=== PATIENT | female | born 2000 | race Caucasian/White ===

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

== ENCOUNTER 2018-02-14 13:21 | Emergency (ER) | payer MEDICAID ==
[~2018-02-14] VITALS: Ht 154.9 cm; Wt 47.7 kg
[2018-02-14 13:30] VITALS: TEMP 97.9
[2018-02-14 13:55] LABS: COLLECTION METHOD CLEAN CATCH
[2018-02-14 14:01] LABS: MUCOUS Present /lpf; PH 5 (5-8); URINE APPEARANCE Cloudy; URINE BACTERIA None Seen /hpf; URINE BILIRUBIN Negative (NEGATIVE); URINE BLOOD Negative (NEGATIVE); URINE COLOR Yellow; URINE GLUCOSE Negative (NEGATIVE); URINE KETONE Negative (NEGATIVE); URINE LEUKOCYTE ESTERASE 2+ (NEGATIVE); URINE NITRATE Negative (NEGATIVE); URINE PROTEIN(semi-quant) Negative (NEGATIVE); URINE RBC 0-2 /hpf; URINE UROBILINOGEN Negative (NEGATIVE)
[2018-02-14] MEDS ORDERED: CEPHALEXIN500 M1 PO (15:55)
[2018-02-14] MEDS ORDERED: FLAGYL500 MG PO (17:17)
[2018-02-14] MEDS ORDERED: DOXYCYCLINE 10100 MG PO (17:17)
[2018-02-14 18:02] VITALS: BP 115/76; PULSE 70
== END 2018-02-14 18:00 | disposition home or self-care (01) ==
LOC: COL.ER 13:21
PROVIDERS: Emergency Medicine
DX: N39.0 Urinary tract infection, site not specified (principal); N76.0 Acute vaginitis; N73.9 Female pelvic inflammatory disease, unspecified; F17.210 Nicotine dependence, cigarettes, uncomplicated; Z86.19 Personal history of other infectious and parasitic diseases
CPT/HCPCS: J0696

== ENCOUNTER 2018-02-17 20:11 | Emergency (ER) | payer SELFPAY ==
[~2018-02-17] VITALS: Ht 154.9 cm; Wt 50.0 kg
[~2018-02-17 20:11] MED LIST changes: +CEPHALEXIN500 M1 PO; +DOXYCYCLINE 10100 MG PO; +FLAGYL500 MG PO
[2018-02-17 20:14] VITALS: BP 107/57; TEMP 98.5
[2018-02-17] MEDS ORDERED: PEPCID 20MG TAB20 MG PO (22:15)
[2018-02-17] MEDS ORDERED: ZOFRAN ODT4 MG PO (22:15)
[2018-02-17 22:20] VITALS: PULSE 83
== END 2018-02-17 22:20 | disposition home or self-care (01) ==
LOC: COL.ER 20:11
DX: K29.70 Gastritis, unspecified, without bleeding (principal); F17.210 Nicotine dependence, cigarettes, uncomplicated

== ENCOUNTER 2018-02-25 11:43 | Emergency (ER) | payer SELFPAY ==
[~2018-02-25] VITALS: Ht 154.9 cm; Wt 50.0 kg
[~2018-02-25 11:43] MED LIST changes: +PEPCID 20MG TAB20 MG PO
[2018-02-25 11:54] VITALS: BP 101/60; PULSE 88; TEMP 98.9
== END 2018-02-25 15:54 | disposition left against medical advice (07) ==
LOC: COL.ER 11:43
DX: R10.2 Pelvic and perineal pain (principal)

== ENCOUNTER 2018-02-27 09:59 | Emergency (ER) | payer SELFPAY ==
[~2018-02-27] VITALS: Ht 154.9 cm; Wt 50.0 kg
[2018-02-27 10:03] VITALS: TEMP 98.9
[2018-02-27 10:39] LABS: COLLECTION METHOD CLEAN CATCH
[2018-02-27 10:49] LABS: HEMOGLOBIN 14.8 g/dl (12.0-15.0); MEAN CELL VOLUME 84 fl (80.0-95.0); MEAN CORPUSCULAR HEMOGLOBIN 29 pg (26.0-32.0); MEAN CORPUSCULAR HGB CONC 34 g/dl (33.0-37.0); MEAN PLATELET VOLUME 9.2 fl (7.4-10.4); PLATELET COUNT 211 K/mm3 (130-400); RED BLOOD COUNT 5.11 M/mm3 (4.10-5.30); REDCELL DISTRIBUTION WIDTH-CV 11.7 % (11.5-14.5)
[2018-02-27 10:53] LABS: MUCOUS Present /lpf; PH 5 (5-8); URINE APPEARANCE Hazy; URINE BACTERIA Rare /hpf; URINE BILIRUBIN Negative (NEGATIVE); URINE BLOOD Negative (NEGATIVE); URINE COLOR Yellow; URINE GLUCOSE Negative (NEGATIVE); URINE KETONE 2+ (NEGATIVE); URINE LEUKOCYTE ESTERASE 1+ (NEGATIVE); URINE NITRATE Negative (NEGATIVE); URINE PROTEIN(semi-quant) 1+ (NEGATIVE); URINE RBC 0-2 /hpf; URINE UROBILINOGEN Negative (NEGATIVE)
[2018-02-27 11:03] LABS: ALANINE AMINOTRANSFERASE 32 U/L (9-52); ALBUMIN 4.4 gm/dL (3.5-5.0); ALKALINE PHOSPHATASE 93 U/L (50-136); ANION GAP 8 mmol/L (7-16); AST,SGOT 34 U/L (15-37); BILIRUBIN,TOTAL 1.2 mg/dL (0.0-1.0); BLOOD UREA NITROGEN 18 mg/dL (7-17); CALCIUM 9.3 mg/dL (8.4-10.2); CARBON DIOXIDE 23 mmol/L (22-30); CHLORIDE 106 mmol/L (98-107); CREATININE, serum 0.63 mg/dL (0.52-1.25); GLUCOSE 104 mg/dL (74-106); POTASSIUM 4.1 mmol/L (3.4-5.0); SODIUM 137 mmol/L (137-145); TOTAL PROTEIN 7.9 gm/dL (6.4-8.2)
[2018-02-27 11:09] LABS: C-REACTIVE PROTEIN < 0.5 mg/dL (0.0-0.9)
[2018-02-27 11:10] LABS: BAND 1 % (0-10); LYMPHOCYTE 9 % (20.0-51.0); NEUTROPHILS 86 % (42.0-75.2)
[2018-02-27 11:11] LABS: PLATELET ESTIMATE NORMAL (NORMAL)
[2018-02-27 12:21] VITALS: BP 102/54; PULSE 95
== END 2018-02-27 12:23 | disposition other institution (70) ==
LOC: COL.ER 09:59
PROVIDERS: Physician Assistant
DX: O21.9 Vomiting of pregnancy, unspecified (principal); O26.899 Other specified pregnancy related conditions, unspecified trimester; R19.7 Diarrhea, unspecified; Z3A.00 Weeks of gestation of pregnancy not specified
CPT/HCPCS: J2405; J7030

== ENCOUNTER 2018-03-31 18:46 | Emergency (ER) | payer MEDICAID ==
[~2018-03-31] VITALS: Ht 160 cm; Wt 45.2 kg
[2018-03-31 18:57] VITALS: TEMP 98.4
[2018-03-31 19:32] LABS: COLLECTION METHOD CLEAN CATCH
[2018-03-31 19:54] LABS: MUCOUS Present /lpf; PH 6 (5-8); URINE APPEARANCE Cloudy; URINE BACTERIA None Seen /hpf; URINE BILIRUBIN Negative (NEGATIVE); URINE BLOOD Negative (NEGATIVE); URINE COLOR Yellow; URINE GLUCOSE Negative (NEGATIVE); URINE KETONE Negative (NEGATIVE); URINE LEUKOCYTE ESTERASE 3+ (NEGATIVE); URINE NITRATE Negative (NEGATIVE); URINE PROTEIN(semi-quant) Negative (NEGATIVE); URINE RBC 0-2 /hpf; URINE UROBILINOGEN >=4.0 mg/dL (NEGATIVE)
[2018-03-31] MEDS ORDERED: FLAGYL500 MG PO (20:30)
[2018-03-31] MEDS ORDERED: MACROBID 1100 MG/CAP PO (20:30)
[2018-03-31 20:34] VITALS: BP 104/42; PULSE 77
== END 2018-03-31 20:36 | disposition home or self-care (01) ==
LOC: COL.ER 18:46
PROVIDERS: Emergency Medicine
DX: O23.41 Unspecified infection of urinary tract in pregnancy, first trimester (principal); O23.591 Infection of other part of genital tract in pregnancy, first trimester; B96.89 Other specified bacterial agents as the cause of diseases classified elsewhere; O99.331 Smoking (tobacco) complicating pregnancy, first trimester; F17.210 Nicotine dependence, cigarettes, uncomplicated; Z3A.09 9 weeks gestation of pregnancy

== ENCOUNTER 2018-09-14 18:48 | Emergency (ER) | payer MEDICAID ==
[~2018-09-14] VITALS: Ht 154.9 cm; Wt 54.5 kg
[~2018-09-14 18:48] MED LIST changes: +MACROBID 1100 MG/CAP PO
[2018-09-14 19:00] VITALS: BP 124/57; TEMP 98.2
[2018-09-14] MEDS ORDERED: CEPHALEXIN500 M1 PO (21:00)
[2018-09-14 21:15] VITALS: PULSE 84
[2018-09-16] MEDS ORDERED: BACTRIM DS 8001 TAB PO (21:43)
== END 2018-09-14 21:17 | disposition home or self-care (01) ==
LOC: COL.ER 18:48
DX: S90.862A Insect bite (nonvenomous), left foot, initial encounter (principal); L08.9 Local infection of the skin and subcutaneous tissue, unspecified; W57.XXXA Bitten or stung by nonvenomous insect and other nonvenomous arthropods, initial encounter; Z87.891 Personal history of nicotine dependence

== ENCOUNTER → 2018-10-27 | Outpatient (CLI) | payer MEDICAID ==
[~2018-10-27] VITALS: Ht 165.1 cm; Wt 54.5 kg
[~2018-10-27] MED LIST changes: +BACTRIM DS 8001 TAB PO
--- NOTE | 2018-10-27 02:10 | NUR ---
to unit for labor assessment via wheelchair, accompanied by boyfriend. Pt anxious, crying, assisted into gown and onto bed. Plan of care reviewed.
--- NOTE | 2018-10-27 02:22 | NUR ---
SVE as noted, tolerates exam poorly.
[2018-10-27 02:34] VITALS: BP 121/84; PULSE 94; TEMP 98
--- NOTE | 2018-10-27 02:45 | NUR ---
2nd friend arrives, supportive, reassuring. Pt able to relax. Pt scratching abd, no rash or broken areas noted. Encouraged pt to stop scratching, cold wash cloth provided to rub abd instead of scratching.
[2018-10-27 03:30] VITALS: BP 110/56; PULSE 90
--- NOTE | 2018-10-27 04:00 | NUR ---
Discharge instructions reviewed with pt, questions invited and answered. Ambulatory off unit with friends
== END ==
LOC: LDRO 02:08
DX: O62.9 Abnormality of forces of labor, unspecified (principal); Z3A.39 39 weeks gestation of pregnancy

== ENCOUNTER 2018-11-08 10:56 | Inpatient (IN) | payer MEDICAID ==
[~2018-11-08] VITALS: Ht 165.1 cm; Wt 54.1 kg
[2018-11-08] VITALS (44 sets, daily range): BP systolic 105–227; BP diastolic 53–115; PULSE 62–125; TEMP 97.1–98.8
--- NOTE | 2018-11-08 11:20 | NUR ---
Pt arrives on unit ambulatory as direct admission from Dr. Fried' office. Changed into clean gown. EFM and toco applied. VSS. IV started in . Labs drawn. LR infusing. Admission assessment completed. Consents signed. Pt updated on POC. Safety reviewed. Bed locked in low postion. Call light within reach. No questions or concerns at this time.
[2018-11-08 12:15] LABS: BASO % 0.2 % (0.0-2.0); EOS # 0.1 (0.0-0.7); EOS % 0.6 % (0-4.0); GRAN # 9.2 (1.4-6.5); GRAN % 74.6 % (42.2-75.2); HEMATOCRIT 42.7 % (35.0-45.0); HEMOGLOBIN 14.3 g/dl (12.0-15.0); LYMPH # 2.2 (1.2-3.4); LYMPH % 17.5 % (20.0-51.0); MEAN CELL VOLUME 87 fl (80.0-95.0); MEAN CORPUSCULAR HEMOGLOBIN 29 pg (26.0-32.0); MEAN CORPUSCULAR HGB CONC 34 g/dl (33.0-37.0); MEAN PLATELET VOLUME 10.3 fl (7.4-10.4); MONO # 0.7 (0.1-0.6); MONO % 5.9 % (1.7-9.3); PLATELET COUNT 275 K/mm3 (130-400); REDCELL DISTRIBUTION WIDTH-CV 12.7 % (11.5-14.5)
[2018-11-08 12:27] LABS: TRICYCLIC ANTIDEPRESS URINE NEGATIVE
--- NOTE | 2018-11-08 16:50 | NUR ---
Late deceleration noted. RN at bedside. Pt reposition. RL. FHR does not return to baseline. LR bolus infusing and O2 applied. SVE per this RN 5/100/-1. SS noted but FHR decreases after next ctx. Pitocin shut off. Ephedrine given. See emar. Pt RUFUS position. Dr. Fagan notifed. FHR returns to 145 with moderate variability. See physician notification.
--- NOTE | 2018-11-08 17:23 | NUR ---
Pt requesting confidential status. Does not want FOB and FOB mother to be in the hospital during labor. Discussed medical record number and visitor access. Pt verbalized understanding.
--- NOTE | 2018-11-08 19:59 | NUR ---
BOYFRIEND AND 2 FEMALE FRIENDS AT BEDSIDE FOR SUPPORT
--- NOTE | 2018-11-08 20:50 | NUR ---
VARIABLE LATE DECELS WHEN TURNS TO RT SIDE. RESOLVED WHEN LEFT SIDE. DR ALEXANDER NOTIFIED /0-+1
--- NOTE | 2018-11-08 20:53 | NUR ---
BENADRYL 25MG PO FOR C/O ITCHING AT 2044. Scripped WOULD NOT PASS QUERIES FOR ALLERGIC RXN REVERSAL SO I MANUALLY ENTERED IT
[2018-11-09] VITALS (13 sets, daily range): BP systolic 101–125; BP diastolic 53–99; PULSE 71–98; TEMP 97.5–98.3
--- NOTE | 2018-11-09 01:00 | NUR ---
BRETT SCRUB FOR DELIVERY DR ALEXANDER HERE 2 GIRLFRIENDS HERE FOR SUPPORT. DUNN DISCONTINUED. PUSHES WELL- TIRED. BED APART , FOOT RESTS USED 0132 FEMALE TO MOTHERS ABDOMEN FRIEND CUTS CORD
--- NOTE | 2018-11-09 09:28 | NUR ---
Weeder at bedside.
--- NOTE | 2018-11-09 16:03 | NUR ---
SW Recieved a consult for patient for hx of substances. SW's met with patient in room. Patient reports that she resides locally at the [facility] and that she and her BF just moved at [address] . Patient reports that she and her BF have not been together long and the FOB is currently in another relationship in which that GF is also and giving soon. Patient indicated that he was to be present for the but decided not to due to it being his GF's birthday. Patient reports that she does not have any income and is currently using her BF's income. Client reports that she has supplies for the baby gifted to her by her sister. Patient denies having any concerns. CPS report made for financial resources to mother and child. CPS [id number].
[2018-11-09] MEDS ORDERED: MOTRIN 800800 MG/TAB PO (19:00)
[2018-11-10 08:49] VITALS: BP 110/66; PULSE 78; TEMP 97.6
[2018-11-10] MEDS ORDERED: BREASTPUMP MC (09:07)
--- NOTE | 2018-11-13 15:57 | NUR ---
Patient's infants cord blood was negative for illegal drugs in system.
== END 2018-11-10 12:00 | disposition home or self-care (01) | DRG 807 ==
LOC: LDR 10:56 → OB 11-09 05:12 → LDR 11-11 07:08
PROVIDERS: ADMIT Obstetrics & Gynecology
PROC: 10E0XZZ Delivery of Products of Conception, External Approach (ICD-10-PCS; principal; 2018-11-09)
PROC: 0UQMXZZ Repair Vulva, External Approach (ICD-10-PCS; 2018-11-09)
DX: O99.52 Diseases of the respiratory system complicating childbirth (principal); Z37.0 Single live birth; J45.909 Unspecified asthma, uncomplicated; O70.0 First degree perineal laceration during delivery; O26.53 Maternal hypotension syndrome, third trimester; Z3A.40 40 weeks gestation of pregnancy
CPT/HCPCS: J2590; J2795; J7120

== ENCOUNTER 2019-05-01 19:20 | Emergency (ER) | payer MEDICAID ==
[~2019-05-01] VITALS: Ht 154.9 cm; Wt 47.7 kg
[~2019-05-01 19:20] MED LIST changes: +BREASTPUMP MC; +MOTRIN 800800 MG/TAB PO
[2019-05-01 19:26] VITALS: BP 101/68; TEMP 98.4
[2019-05-01] MEDS ORDERED: PROAIR HFA0.09 MG/AC IH (19:42)
[2019-05-01 19:57] LABS: COLLECTION METHOD CLEAN CATCH
[2019-05-01 20:07] LABS: MUCOUS Present /lpf; URINE BACTERIA None Seen /hpf
[2019-05-01] MEDS ORDERED: FLAGYL 375375 MG PO (20:31)
[2019-05-01 20:34] LABS: PH 8 (5-8); URINE APPEARANCE Clear; URINE BILIRUBIN Negative (NEGATIVE); URINE BLOOD Negative (NEGATIVE); URINE COLOR Yellow; URINE GLUCOSE Negative (NEGATIVE); URINE KETONE Negative (NEGATIVE); URINE LEUKOCYTE ESTERASE 1+ (NEGATIVE); URINE NITRATE Negative (NEGATIVE); URINE PROTEIN(semi-quant) 1+ (NEGATIVE); URINE UROBILINOGEN Negative (NEGATIVE)
[2019-05-01 20:44] VITALS: PULSE 74
== END 2019-05-01 20:44 | disposition home or self-care (01) ==
LOC: COL.ER 19:20
PROVIDERS: Family Medicine
DX: N76.0 Acute vaginitis (principal); B96.89 Other specified bacterial agents as the cause of diseases classified elsewhere; R59.1 Generalized enlarged lymph nodes; F17.210 Nicotine dependence, cigarettes, uncomplicated
CPT/HCPCS: J0696

== ENCOUNTER 2019-10-10 17:42 | Emergency (ER) | payer MEDICAID ==
[~2019-10-10] VITALS: Ht 152.4 cm; Wt 47.7 kg
[~2019-10-10 17:42] MED LIST changes: +FLAGYL 375375 MG PO
[2019-10-10 17:49] VITALS: TEMP 98.4
[2019-10-10] MEDS ORDERED: FLEXERIL 1010 MG/TAB PO (18:55)
[2019-10-10 19:25] VITALS: BP 102/58; PULSE 84
== END 2019-10-10 19:30 | disposition home or self-care (01) ==
LOC: COL.ER 17:42
DX: S13.4XXA Sprain of ligaments of cervical spine, initial encounter (principal); S40.011A Contusion of right shoulder, initial encounter; V29.50XA Motorcycle passenger injured in collision with unspecified motor vehicles in traffic accident, initial encounter
CPT/HCPCS: J1885; J2060

== ENCOUNTER 2020-01-05 22:37 | Emergency (ER) | payer MEDICAID ==
[~2020-01-05] VITALS: Ht 152.4 cm; Wt 43.2 kg
[~2020-01-05 22:37] MED LIST changes: +FLEXERIL 1010 MG/TAB PO
[2020-01-05 22:56] VITALS: TEMP 98.9
[2020-01-05 23:28] LABS: COLLECTION METHOD CLEAN CATCH
[2020-01-05 23:31] LABS: BASO % 0.2 % (0.0-2.0); EOS % 0.4 % (0-4.0); GRAN # 6.1 (1.4-6.5); GRAN % 65.1 % (42.2-75.2); LYMPH # 2.7 (1.2-3.4); LYMPH % 28.5 % (20.0-51.0); MEAN CELL VOLUME 85 fl (80.0-100.0); MEAN CORPUSCULAR HEMOGLOBIN 29 pg (27.0-31.0); MEAN CORPUSCULAR HGB CONC 34 g/dl (33.0-37.0); MEAN PLATELET VOLUME 9.1 fl (7.4-10.4); MONO # 0.5 (0.1-0.6); MONO % 5.5 % (1.7-9.3); PLATELET COUNT 210 K/mm3 (130-400); RED BLOOD COUNT 4.18 M/mm3 (4.10-5.30); REDCELL DISTRIBUTION WIDTH-CV 11.9 % (11.5-14.5)
[2020-01-05 23:39] LABS: HEMATOCRIT 35.5 % (37.0-47.0)
[2020-01-05 23:42] LABS: ALBUMIN 4.5 gm/dL (3.5-5.0); CREATININE, serum 0.67 (0.52-1.25); POTASSIUM 3.4 mmol/L (3.4-5.0); TOTAL PROTEIN 7.2 gm/dL (6.4-8.2)
[2020-01-05 23:52] LABS: AMORPHOUS CRYSTAL Present /uL; MUCOUS Present /lpf; PH 6 (5-8); URINE APPEARANCE Cloudy; URINE BACTERIA None Seen /hpf; URINE BILIRUBIN Negative (NEGATIVE); URINE BLOOD 1+ (NEGATIVE); URINE COLOR Yellow; URINE GLUCOSE Negative (NEGATIVE); URINE KETONE Negative (NEGATIVE); URINE LEUKOCYTE ESTERASE Negative (NEGATIVE); URINE NITRATE Negative (NEGATIVE); URINE PROTEIN(semi-quant) Negative (NEGATIVE); URINE RBC None Seen /hpf
[2020-01-06 00:30] VITALS: BP 109/64; PULSE 80
== END 2020-01-06 00:35 | disposition home or self-care (01) ==
LOC: COL.ER 22:37
PROVIDERS: Nurse Practitioner
DX: O26.891 Other specified pregnancy related conditions, first trimester (principal); R10.2 Pelvic and perineal pain; O99.331 Smoking (tobacco) complicating pregnancy, first trimester; F17.200 Nicotine dependence, unspecified, uncomplicated; Z3A.10 10 weeks gestation of pregnancy

== ENCOUNTER 2020-01-26 03:54 | Emergency (ER) | payer MEDICAID ==
[~2020-01-26] VITALS: Ht 152.4 cm; Wt 45.5 kg
[2020-01-26 03:59] VITALS: TEMP 98.2
[2020-01-26 04:36] LABS: BASO % 0.2 % (0.0-2.0); EOS # 0.1 (0.0-0.7); GRAN % 35.8 % (42.2-75.2); HEMATOCRIT 37.7 % (37.0-47.0); HEMOGLOBIN 12.7 g/dl (12.5-16.0); LYMPH # 4.7 (1.2-3.4); LYMPH % 56.3 % (20.0-51.0); MEAN CELL VOLUME 85 fl (80.0-100.0); MEAN CORPUSCULAR HEMOGLOBIN 29 pg (27.0-31.0); MEAN CORPUSCULAR HGB CONC 34 g/dl (33.0-37.0); MEAN PLATELET VOLUME 8.9 fl (7.4-10.4); MONO # 0.5 (0.1-0.6); MONO % 6.3 % (1.7-9.3); PLATELET COUNT 256 K/mm3 (130-400); RED BLOOD COUNT 4.45 M/mm3 (4.10-5.30); REDCELL DISTRIBUTION WIDTH-CV 12.1 % (11.5-14.5)
[2020-01-26 04:47] LABS: ALANINE AMINOTRANSFERASE 21 U/L (4-34); ALBUMIN 4.3 gm/dL (3.5-5.0); ALKALINE PHOSPHATASE 86 U/L (50-136); ANION GAP 10 mmol/L (7-16); AST,SGOT 27 U/L (15-37); BILIRUBIN,TOTAL 1.2 mg/dL (0.0-1.0); BLOOD UREA NITROGEN 15 mg/dL (7-17); CARBON DIOXIDE 24 mmol/L (22-30); CHLORIDE 104 mmol/L (98-107); CREATININE, serum 0.78 (0.52-1.25); GLUCOSE 98 mg/dL (74-106); POTASSIUM 3.6 mmol/L (3.4-5.0); SODIUM 138 mmol/L (137-145); TOTAL PROTEIN 7.2 gm/dL (6.4-8.2)
[2020-01-26 04:50] LABS: C-REACTIVE PROTEIN < 0.5 mg/dL (0.0-0.9)
[2020-01-26 05:09] VITALS: BP 106/66
[2020-01-26 05:18] LABS: HCG,QUANTITATIVE 3 mIU/mL (0-5)
[2020-01-26 06:13] VITALS: PULSE 62
== END 2020-01-26 06:27 | disposition home or self-care (01) ==
LOC: COL.ER 03:54
PROVIDERS: Emergency Medicine
DX: R10.11 Right upper quadrant pain (principal); R10.32 Left lower quadrant pain; F17.210 Nicotine dependence, cigarettes, uncomplicated
CPT/HCPCS: J1885; J7030

== ENCOUNTER 2020-07-04 15:35 | Emergency (ER) | payer MEDICAID ==
[~2020-07-04] VITALS: Ht 152.4 cm; Wt 47.7 kg
[2020-07-04 15:45] VITALS: TEMP 97.9
[2020-07-04 16:20] LABS: COLLECTION METHOD CLEAN CATCH
[2020-07-04 16:30] LABS: MUCOUS Present /lpf; PH 6 (5-8); URINE APPEARANCE Hazy; URINE BACTERIA Rare /hpf; URINE BILIRUBIN Negative (NEGATIVE); URINE BLOOD Negative (NEGATIVE); URINE COLOR Yellow; URINE GLUCOSE Negative (NEGATIVE); URINE KETONE Negative (NEGATIVE); URINE LEUKOCYTE ESTERASE 2+ (NEGATIVE); URINE NITRATE Negative (NEGATIVE); URINE PROTEIN(semi-quant) Negative (NEGATIVE); URINE RBC 0-2 /hpf
[2020-07-04] MEDS ORDERED: MACROBID 1100 MG/CAP PO (16:45)
[2020-07-04 16:51] VITALS: BP 100/53; PULSE 69
[2020-10-14] MEDS ORDERED: PRENATAL TABLET PO (16:44)
== END 2020-07-04 16:55 | disposition home or self-care (01) ==
LOC: COL.ER 15:35
PROVIDERS: Nurse Practitioner
DX: O23.42 Unspecified infection of urinary tract in pregnancy, second trimester (principal); Z87.891 Personal history of nicotine dependence; Z3A.19 19 weeks gestation of pregnancy

== ENCOUNTER 2020-11-12 21:27 | Inpatient (IN) | payer MEDICAID ==
[~2020-11-12] VITALS: Ht 157.5 cm; Wt 51.2 kg
[~2020-11-12 21:27] MED LIST changes: +PRENATAL TABLET PO
[2020-11-12 22:00] VITALS: BP 117/74; PULSE 90; TEMP 98.1
[2020-11-12 22:53] LABS: BASO % 0.2 % (0.0-2.0); EOS % 0.4 % (0-4.0); GRAN # 6.7 (1.4-6.5); GRAN % 70.4 % (42.2-75.2); HEMATOCRIT 36.8 % (37.0-47.0); HEMOGLOBIN 12.4 g/dl (12.5-16.0); LYMPH # 2.1 (1.2-3.4); LYMPH % 22.1 % (20.0-51.0); MEAN CELL VOLUME 83 fl (80.0-100.0); MEAN CORPUSCULAR HEMOGLOBIN 28 pg (27.0-31.0); MEAN CORPUSCULAR HGB CONC 34 g/dl (33.0-37.0); MONO # 0.6 (0.1-0.6); MONO % 6.4 % (1.7-9.3); PLATELET COUNT 324 K/mm3 (130-400); RED BLOOD COUNT 4.43 M/mm3 (4.10-5.30); REDCELL DISTRIBUTION WIDTH-CV 12.2 % (11.5-14.5)
[2020-11-12 23:09] LABS: TRICYCLIC ANTIDEPRESS URINE NEGATIVE
[2020-11-12 23:30] VITALS: BP 127/78; PULSE 91
[2020-11-12 23:45] VITALS: BP 125/58; PULSE 99; TEMP 98
[2020-11-13] VITALS (45 sets, daily range): BP systolic 92–153; BP diastolic 50–557; PULSE 60–93; TEMP 97.8–98.4
--- NOTE | 2020-11-13 06:25 | NUR ---
Bedside report received from Jose Daniel. Patient resting comfortably at this time. 0632: SVE-8/90/-1 and forebag noted at this time. Plan of care discussed. Discussing the protocol of covid testing and patient refuses test at this time.
--- NOTE | 2020-11-13 08:00 | NUR ---
Dr. Pimentel at bedside and assessing patient ad FHR strip. SVE-/0 and AROM of forebag at this time.
--- NOTE | 2020-11-13 08:25 | NUR ---
FHR baseline 135bpm and recurrent early decelerations noted. Patient wedged left with peanut ball and resting. 0855: Recurrent variable/early declerations noted. 0858: Dr. Pimentel at bedside and assessing patient and FHR strip. SV-coplete and patient prepped for vaginal delivery. Ruiz catheter removed and patient tolerates well. 0900: Patient begins to push with contraction per Dr. Bhatt orders. 0902: Spontaneous vaginal delivery of viable female-head followed by body. bulb syringed and to patiets Malena chua RN assumes care of infant. Cord clamped by physician and cut by mother of patient. Cord blood obtained. 0905: Spontaneous delivery of placenta and pitocin bolus started at 333mU/hr per protocol. Fundal massage done/firm/bleeding WNL and perineum intact. Pericare done and ice pack to perineum. Plan of care discussed.
--- NOTE | 2020-11-13 18:20 | NUR ---
1820- PT WISHES TO GO "OUTSIDE FOR FRESH AIR." EXPLAINED TO PT THAT IT IS SAFEST FOR HER TO STAY IN HER HOSPITAL ROOM, BUT THAT NURSE COULD NOT FORCE HER TO STAY THERE. EXPLAINED RISKS TO PT OF EMERGENCY BLEEDING SITUATION, INJURY, AND RISK OF EXPOSURE TO COVID IF PT SHOULD LEAVE HER ROOM AND GO OUTSIDE. PT VERBALIZES UNDERSTANDING. ALSO ENCOURAGED PT TO BE SURE SOMEONE WAS AVAILABLE TO WATCH HER BABY SO THAT IT WAS NOT LEFT UNATTENDED. PT WANTS TO SEND BABY TO NURSERY AT THIS TIME.
--- NOTE | 2020-11-13 18:40 | NUR ---
1840- PT LEAVES UNIT UNATTENDED.
--- NOTE | 2020-11-14 02:38 | NUR ---
Assumed care at this time.
[2020-11-14 03:30] VITALS: BP 100/61; PULSE 77; TEMP 97.8
[2020-11-14] MEDS ORDERED: MOTRIN 800800 MG/TAB PO (10:14)
== END 2020-11-14 11:20 | disposition home or self-care (01) | DRG 807 ==
LOC: LDRO 21:27 → LDR 22:15 → OB 11-13 11:00
PROVIDERS: Obstetrics & Gynecology; ADMIT Obstetrics & Gynecology
PROC: 10E0XZZ Delivery of Products of Conception, External Approach (ICD-10-PCS; principal; 2020-11-13)
DX: O99.824 Streptococcus B carrier state complicating childbirth (principal); Z37.0 Single live birth; O99.52 Diseases of the respiratory system complicating childbirth; J45.909 Unspecified asthma, uncomplicated; O71.82 Other specified trauma to perineum and vulva; Z3A.37 37 weeks gestation of pregnancy
CPT/HCPCS: J2540; J2590; J7120

== ENCOUNTER 2021-11-02 15:45 | Outpatient (CLI) | payer MEDICAID ==
[~2021-11-02] VITALS: Ht 152.4 cm; Wt 50.0 kg
--- NOTE | 2021-11-02 15:50 | NUR ---
1548- Pt arrives on unit ambulatory with complaints of constant cramping, headache, and feeling weak. Pt changes into gown. 1551- Pt into bed. TOCO on and tracing. O2 sat monitor on and tracing maternal HR. Assessments completed. Pt states she woke up at 0300 this morning with constant cramping. Her underwear were also "soaking wet" but has had no other LOF since then. Pt denies VB or UCs. VSS.
[2021-11-02] MEDS ORDERED: TYLENOL 325MG325 MG PO (16:03)
[2021-11-02 16:15] VITALS: BP 111/56; PULSE 97; TEMP 99.2
[2021-11-02 16:45] VITALS: BP 99/55; PULSE 93
[2021-11-02 17:04] LABS: COLLECTION METHOD CLEAN CATCH
[2021-11-02 17:12] LABS: PH 5.5 (5.0-8.5); URINE APPEARANCE Cloudy (CLEAR/HAZY); URINE COLOR Amber (YELLOW); URINE PROTEIN(semi-quant) 1+ (NEGATIVE)
[2021-11-02 17:13] LABS: URINE GLUCOSE Negative (NEGATIVE); URINE KETONE 4+ (NEGATIVE)
[2021-11-02 17:14] LABS: URINE BLOOD Negative (NEGATIVE); URINE NITRATE Negative (NEGATIVE)
[2021-11-02 17:15] VITALS: BP 91/61; PULSE 95
[2021-11-02 17:17] LABS: MUCOUS Present (NOT PRESENT); URINE BACTERIA None Seen /hpf (NONE SEEN)
[2021-11-02 17:42] VITALS: BP 89/54; PULSE 91
--- NOTE | 2021-11-02 17:55 | NUR ---
1741- Pt updated on POC, sending home with Rx for Macobid, called to [facility]. TOCO off. Pt up to change into street clothes. 1754- Discharge paperwork given and explained, denies questions. Pt ambulates off unit in stable condition.
== END 2021-11-02 17:55 | disposition home or self-care (01) ==
LOC: LDRO 15:45
PROVIDERS: Obstetrics & Gynecology
DX: O47.00 False labor before 37 completed weeks of gestation, unspecified trimester (principal); O26.812 Pregnancy related exhaustion and fatigue, second trimester; Z3A.00 Weeks of gestation of pregnancy not specified
CPT/HCPCS: J7120

== ENCOUNTER 2023-10-15 18:02 | Observation (INO) | payer MEDICAID ==
[~2023-10-15] VITALS: Ht 152.4 cm; Wt 51.8 kg
[~2023-10-15 18:02] MED LIST changes: +DAZIDOX10 MG PO; +IBU800 M1 PO; +TYLENOL 325MG325 MG PO
[2023-10-15 19:34] LABS: BASO % 0.1 % (0.0-2.0); EOS % 0.5 % (0.0-4.0); GRAN # 5.7 K/mm3 (1.4-6.5); HEMATOCRIT 41.7 % (37.0-47.0); HEMOGLOBIN 13.9 g/dl (12.5-16.0); LYMPH # 1.8 K/mm3 (1.2-3.4); LYMPH % 22.9 % (20.0-51.0); MEAN CELL VOLUME 86 fl (80.0-100.0); MEAN CORPUSCULAR HEMOGLOBIN 29 pg (27-31); MEAN CORPUSCULAR HGB CONC 33 g/dl (33.0-37.0); MONO # 0.4 K/mm3 (0.1-0.6); MONO % 5.1 % (1.7-9.3); PLATELET COUNT 287 K/mm3 (130-400); RED BLOOD COUNT 4.85 M/mm3 (4.10-5.30); REDCELL DISTRIBUTION WIDTH-CV 11.9 % (11.5-14.5)
[2023-10-15] MEDS ORDERED: NS 1,000 ML IV ONE (19:45)
[2023-10-15] MEDS ORDERED: Ondansetron 4 MG/2 ML VIAL IV ONE (19:45)
[2023-10-15] MEDS ORDERED: Ketorolac 30 MG/ML VIAL IV ONE (19:45)
[2023-10-15] MEDS ORDERED: Mag/Al Hydrox/Simeth Susp 30 ML CUP PO ONE (19:45)
[2023-10-15 19:54] LABS: ALBUMIN 4.4 g/dL (3.5-5.0); BILIRUBIN,TOTAL 0.7 mg/dL (0.2-1.2); C-REACTIVE PROTEIN 0.06 mg/dL (0.00-0.50); CREATININE, serum 0.76 mg/dL (0.57-1.11); POTASSIUM 3.7 mEq/L (3.5-4.5); TOTAL PROTEIN 8.3 g/dl (6.2-8.1)
[2023-10-15 20:02] LABS: COLLECTION METHOD CLEAN CATCH
[2023-10-15 20:11] LABS: PH 6.5 (5.0-8.5); URINE APPEARANCE CLEAR (CLEAR/HAZY); URINE BLOOD NEGATIVE (NEGATIVE); URINE COLOR YELLOW (YELLOW); URINE GLUCOSE NEGATIVE (NEGATIVE); URINE KETONE NEGATIVE (NEGATIVE); URINE NITRATE NEGATIVE (NEGATIVE); URINE PROTEIN(semi-quant) NEGATIVE (NEGATIVE); URINE UROBILINOGEN 0.2 E.U/dL (0.2-1.0)
[2023-10-15] MEDS ORDERED: Iohexol 300 - 100 ML VIAL IV ONE (20:29)
[2023-10-15] MEDS ORDERED: NS 100 ML IV ONE (20:29)
[2023-10-15] MEDS ORDERED: HYDROmorphone 0.5 MG/0.5 ML SYRINGE IV PRN (23:45)
[2023-10-15] MEDS ORDERED: Ondansetron 4 MG/2 ML VIAL IV PRN (23:45)
[2023-10-15] MEDS ORDERED: NS 1,000 ML IV SCH (23:45)
[2023-10-16] VITALS (14 sets, daily range): BP systolic 84–126; BP diastolic 51–73; PULSE 53–81; TEMP 97.4–98.3
[2023-10-16] MEDS ORDERED: DEPO-PROVER150 MG/M1 IM (00:04)
--- NOTE | 2023-10-16 00:10 | NUR ---
PT ARRIVED FROM ER VIA STRETCHER. AMBULATED TO ROOM, USED BR IN ROOM TO VOID AT THIS TIME. PT REPORTS PAIN TO ABDOMEN /, HOWEVER STATES JUST RECEIVED MEDS IN ER AND DOES NOT NEED ANYTHING ELSE RIGHT NOW. NO NAUSEA AT THIS TIME, REQUESTING CHICKEN BROTH. PT NPO AT THIS TIME FOR SURGERY PENDING THIS AM, PT STATES UNDERSTANDING.
--- NOTE | 2023-10-16 08:48 | NUR ---
PT RESTING IN BED DENIES NEEDS OR PAIN AT THIS TIME. PLAN ON [facility] LATER THIS PM WITH DR. STEVENSON. PT IS A/O X4. INDEPENDENT IN ROOM.
[2023-10-16 10:23] LABS: BASO % 0.2 % (0.0-2.0); EOS # 0.1 K/mm3 (0.0-0.7); EOS % 1.2 % (0.0-4.0); GRAN # 2.6 K/mm3 (1.4-6.5); GRAN % 44.4 % (42.2-75.2); HEMATOCRIT 33.5 % (37.0-47.0); HEMOGLOBIN 11.1 g/dl (12.5-16.0); LYMPH # 2.9 K/mm3 (1.2-3.4); LYMPH % 48.6 % (20.0-51.0); MEAN CELL VOLUME 86 fl (80.0-100.0); MEAN CORPUSCULAR HEMOGLOBIN 28 pg (27-31); MEAN CORPUSCULAR HGB CONC 33 g/dl (33.0-37.0); MEAN PLATELET VOLUME 9.3 fl (7.4-10.4); MONO # 0.3 K/mm3 (0.1-0.6); MONO % 5.4 % (1.7-9.3); PLATELET COUNT 210 K/mm3 (130-400)
[2023-10-16] MEDS ORDERED: Lidocaine PF 2% (20 MG/ML) 5 ML VIAL ONE ×2 (10:49→15:39)
[2023-10-16] MEDS ORDERED: fentaNYL 50 MCG/ML 2 ML VIAL ONE ×2 (10:49→15:39)
[2023-10-16 10:51] LABS: ALBUMIN 3.3 g/dL (3.5-5.0); CALCIUM 8.2 mg/dL (8.4-10.2); CREATININE, serum 0.75 mg/dL (0.57-1.11); POTASSIUM 3.9 mEq/L (3.5-4.5)
[2023-10-16] MEDS ORDERED: Indocyanine Green 12.5 MG in Water For Injection,Sterile 2.5 ML IV ONE (12:00)
[2023-10-16] MEDS ORDERED: Ketorolac 30 MG/ML VIAL ONE (15:39)
[2023-10-16] MEDS ORDERED: dexAMETHasone 10 MG/ML VIAL ONE (15:39)
[2023-10-16] MEDS ORDERED: Ondansetron 4 MG/2 ML VIAL ONE (15:39)
[2023-10-16] MEDS ORDERED: Rocuronium 50 MG/5 ML Multi-Dose VIAL ONE (15:39)
--- NOTE | 2023-10-16 16:03 | NUR ---
tea tree farm worker met with patient and her friend to discuss discharge planning. Patient lives in [place]. PCP is Dr. Fried, Pharmacy is [facility]. Insurance is Medicaid [facility]. No DPOA-HC. No issues affording medications. No DME and reports to be independent with ADLS. Patient has a form of transportation to get to and from appointments. patient would like to return home at time of discharge. 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 SW provided information on [employer] and how to send a referral if she was interested. Patient understood, no further questions or concerns. Discharge plan: Home
[2023-10-16] MEDS ORDERED: HYDROmorphone 1 MG/1 ML SYRINGE [PACU/SDC ONLY] IV PRN (16:15)
[2023-10-16] MEDS ORDERED: droPERidol 2.5 MG/ML 2 ML VIAL IV PRN (16:15)
[2023-10-16] MEDS ORDERED: Ondansetron 4 MG/2 ML VIAL IV PRN (16:15)
[2023-10-16] MEDS ORDERED: fentaNYL 50 MCG/ML 1 ML SYRINGE/VIAL [PACU/SDC ONLY] IV PRN (16:15)
[2023-10-16] MEDS ORDERED: Meperidine 50 MG/ML 1 ML VIAL IV PRN (16:15)
[2023-10-16] MEDS ORDERED: Topical Skin Adhesive 1 EACH (1 ML) TOP ONE (16:32)
[2023-10-16] MEDS ORDERED: Amoxicillin/Clavulanate K+ 875/125 MG TAB PO SCH (17:29)
--- NOTE | 2023-10-16 18:32 | NUR ---
PT TO ROOM 330 PER BED WITH REPORT FROM ALFONSO [employer]RUGATED SHEET MATERIAL SHEETER @9174. VSS, LUNGS CTA, 5 LAP SITES [employer] SHORT STORY WRITER.
[2023-10-16] MEDS ORDERED: NORCO 325 MG-51 TAB PO (20:03)
[2023-10-16] MEDS ORDERED: Home HYDROcodone/Acetaminophen 5/325 MG #4 TABS/PACK PO ONE (20:45)
--- NOTE | 2023-10-16 21:08 | NUR ---
1844 - Received bedside report from AIDA Solis. 1952 - Patient is not happy about her fat controlled diet and wanted to go home, called Dr. Hernanedz and made him aware about patient's concerns, VSS, received an order for discharge and Dr. Hernandez said she can go home with a home packet of Ava. 2053 - Patient discharge instructions given, supportive friend at bedside, questions answered. 2105 - Left the floor with family, escorted by this nurse, KAYLEE.
== END 2023-10-16 21:06 | disposition home or self-care (01) ==
LOC: COL.ER 18:02 → SURG 22:09
PROVIDERS: Nurse Practitioner; ADMIT Surgery
DX: K80.12 Calculus of gallbladder with acute and chronic cholecystitis without obstruction (principal); F17.290 Nicotine dependence, other tobacco product, uncomplicated
CPT/HCPCS: G0378; J0690; J1100; J1170; J1885; J2175; J2405; J2543; J2704; J3010; J7030; Q9967